=== PATIENT | male | born 1975 | race Caucasian/White ===

== ENCOUNTER 2021-02-22 10:40 | Emergency (ER) | payer OTHER ==
[~2021-02-22] VITALS: Ht 185 cm; Wt 100.0 kg
[2021-02-22] MEDS ORDERED: ONDANSETRON 4 MG (ZOFRAN) ORAL DISSOLVE TAB PO STA (10:54)
[2021-02-22] MEDS ORDERED: ORPHENADRINE 60 MG/2 ML (NORFLEX) AMP (ED ONLY) IM ONE (11:00)
[2021-02-22] MEDS ORDERED: HYDROmorphone 2 MG/ML VIAL (DILAUDID) IM ONE (11:00)
[2021-02-22 11:05] VITALS: BP 144/94
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
[2021-02-22] MEDS ORDERED: CYCL10TA9 PO (11:24)
[2021-02-22] MEDS ORDERED: OXYC1TAB87 PO (11:24)
== END 2021-02-22 11:34 | disposition home or self-care (01) ==
LOC: ER FS 10:42
DX: M54.50 Low back pain, unspecified (principal); Z72.0 Tobacco use
CPT/HCPCS: 96372; 99284